=== PATIENT | male | born 1975 | race Caucasian/White ===

== ENCOUNTER 2017-11-28 11:45 | Emergency (ER) | payer OTHER ==
[~2017-11-28] VITALS: Ht 180.3 cm; Wt 90.7 kg
--- NOTE | 2017-11-28 11:55 | NUR ---
pt is in room #2a. dr Estevez evaluated the pt.
[2017-11-28] MEDS ORDERED: LORAZEPAM 0.5 MG TABLET PO ONE (12:15)
[2017-11-28] MEDS ORDERED: LORAZEPAM 1 MG TABLET ONE (12:23)
--- NOTE | 2017-11-28 12:28 | NUR ---
D/C INSTRUCTIONS GIVEN TO THE PT. PT WAS REFUSING TO LEAVE HOSPITAL ER. HE REQUESTED TO TALK TO ER MD. DR GILLIS WAS NOTIFIED.
--- NOTE | 2017-11-28 12:49 | NUR ---
DR GILLIS TALKED TO THE PT, GAVE HIM D/C INSTRUCTIONS. PT LEFT [facility] ER BY BECKY.
[2017-11-28 12:51] VITALS: BP 146/92
[2017-11-28] MEDS ORDERED: ONDA4TAB5 PO (13:16)
[2017-11-28] MEDS ORDERED: CHLO25CA22 PO (13:16)
[2017-11-28] MEDS ORDERED: LOPE-156 PO (13:16)
[2017-11-28] MEDS ORDERED: TRAZ-214 PO (13:16)
[2017-11-28] MEDS ORDERED: GABA600T2 PO (13:16)
[2017-11-28] MEDS ORDERED: MAG30ORA PO (13:16)
[2017-11-28] MEDS ORDERED: CALMS FORTE PO (13:16)
[2017-11-28] MEDS ORDERED: DIPH25CA83 PO (13:16)
[2017-11-28] MEDS ORDERED: CALC100067 PO (13:16)
[2017-11-28] MEDS ORDERED: ORPH100T2 PO (13:16)
[2017-11-28] MEDS ORDERED: LORA-259 PO (13:16)
[2017-11-28] MEDS ORDERED: IBUP-1955 PO (13:16)
[2017-11-28] MEDS ORDERED: SERT50TA PO (13:16)
[2017-11-28] MEDS ORDERED: PROP20TA7 PO (13:16)
[2017-11-28] MEDS ORDERED: NERVE TONIC PO (13:16)
[2017-11-28] MEDS ORDERED: CLON0.1T PO (13:16)
[2017-11-28] MEDS ORDERED: BUPR300T52 PO (13:16)
[2017-11-28] MEDS ORDERED: ACET-73 PO (13:16)
[2017-11-28] MEDS ORDERED: HYDR50CA PO (13:16)
[2017-11-28] MEDS ORDERED: DOCU-141 PO (13:16)
== END 2017-11-28 12:52 | disposition home or self-care (01) ==
LOC: ER 11:45
DX: F10.239 Alcohol dependence with withdrawal, unspecified (principal)
CPT/HCPCS: A4663